=== PATIENT | female | born 1990 | race Caucasian/White ===

== ENCOUNTER 2019-11-03 09:44 | Observation (INO) | payer MEDICAID, SELFPAY ==
[~2019-11-03] VITALS: Ht 175.3 cm; Wt 120.7 kg
[~2019-11-03 09:44] MED LIST: LABE100T20 PO; PREN-385 PO
[2019-11-03 10:55] VITALS: BP 113/73
== END 2019-11-03 11:45 | disposition home or self-care (01) ==
LOC: MLD 09:44
PROVIDERS: ADMIT Obstetrics & Gynecology; ATTEND Obstetrics & Gynecology
DX: Z03.818 Encounter for observation for suspected exposure to other biological agents ruled out (principal); O62.9 Abnormality of forces of labor, unspecified; Z3A.38 38 weeks gestation of pregnancy
CPT/HCPCS: 59025; 76815; 81000; G0378; Q0092; U0003

== ENCOUNTER 2019-11-05 15:05 | Inpatient (IN) | payer MEDICAID, SELFPAY ==
[~2019-11-05] VITALS: Ht 175.3 cm; Wt 104.3 kg
[~2019-11-05 15:05] MED LIST changes: -LABE100T20 PO
[2019-11-05] MEDS ORDERED: MISOPROSTOL 25 MCG TAB VG PRN (16:05)
[2019-11-05] MEDS ORDERED: PROMETHAZINE 25 MG/ML VIAL IVP PRN (16:05)
[2019-11-05] MEDS ORDERED: METHYLERGONOVINE 0.2 MG/ML AMP IM PRN (16:05)
[2019-11-05] MEDS ORDERED: CARBOPROST 250 MCG/ML AMP IM PRN (16:05)
[2019-11-05] MEDS ORDERED: OXYTOCIN 10 UNITS/ML VIAL IM SCH (16:05)
[2019-11-05 16:44] LABS: BASOPHILS % (AUTO) 0.2 % (0.0-2.0); EOSINOPHILS % (AUTO) 0.4 % (0.0-4.0); HEMATOCRIT 36.7 % (36-48); HEMOGLOBIN 12.3 g/dL (12.0-16.0); LYMPHOCYTES # (AUTO) 1.9 K/uL (2.5-16.5); LYMPHOCYTES % (AUTO) 20.4 % (20.5-51.1); MEAN CORPUSCULAR HEMOGLOBIN 31 pg (27-31); MEAN CORPUSCULAR HGB CONC 34 g/dL (33-37); MEAN CORPUSCULAR VOLUME 93.1 fL (80-94); MONOCYTES # (AUTO) 0.7 K/uL (0.8-1.0); MONOCYTES % (AUTO) 7.9 % (1.7-9.3); NEUTROPHILS # (AUTO) 6.5 K/uL (1.8-7.7); NEUTROPHILS % (AUTO) 71.1 % (42.2-75.2); PLATELET COUNT (AUTO) 207 K/uL (140-450); RED BLOOD CELL COUNT(AUTO) 3.94 MIL/uL (4.20-5.40); RED CELL DISTRIBUTION WIDTH 14.1 % (11.6-13.7); WHITE BLOOD COUNT (AUTO) 9.1 K/uL (4.8-10.8)
[2019-11-05 16:51] LABS: APPEARANCE,URINE HAZY (CLEAR); BILIRUBIN,URINE NEGATIVE (NEGATIVE); BLOOD, URINE NEGATIVE (NEGATIVE); COLOR,URINE YELLOW (YELLOW); LEUKOCYTE ESTERASE ,URINE TRACE (NEGATIVE); NITRITE, URINE NEGATIVE (NEGATIVE); PH,URINE 7.5 (5.0-9.0); UGLUCOSE NEGATIVE (NEGATIVE)
[2019-11-05 17:04] LABS: ALBUMIN 2.7 g/dL (3.4-5.0); ANION GAP 16.7 (8-16); CREATININE 0.7 mg/dL (0.6-1.3); POTASSIUM 3.7 mmol/L (3.5-5.1); TOTAL BILIRUBIN 0.2 mg/dL (0.0-1.0)
[2019-11-05 17:15] LABS: RBC,URINE NONE SEEN /HPF (0-5); WBC,URINE 0-5 /HPF (0-5)
[2019-11-06] MEDS ORDERED: OXYTOCIN 20 UNITS/LR PREMIX 1,000 ML IV SCH (02:55)
[2019-11-06] MEDS ORDERED: OXYTOCIN 20 UNITS/LR PREMIX 1,000 ML IV ONE (03:03)
[2019-11-06] MEDS: LACTATED RINGERS 1,000 ML IV SCH ×3 (03:30→20:58)
--- NOTE | 2019-11-06 10:35 | NUR ---
PATIENT HAS BEEN SCREENED AND CATEGORIZED LOW NUTRITION RISK. PATIENT WILL BE SEEN WITHIN 7 DAYS OF ADMISSION. 11/12/2019 JONATHAN HARRIS MBA, RD
[2019-11-07] MEDS ORDERED: OXYTOCIN 20 UNITS/LR PREMIX 1,000 ML IV ONE (02:59)
[2019-11-07] MEDS: LACTATED RINGERS 1,000 ML IV SCH ×2 (05:45→13:44)
== END 2019-11-07 19:40 | disposition home or self-care (01) | DRG 566 ==
LOC: MLD 15:05
PROVIDERS: ADMIT Obstetrics & Gynecology; ATTEND Obstetrics & Gynecology
PROC: 3E033VJ Introduction of Other Hormone into Peripheral Vein, Percutaneous Approach (ICD-10-PCS; principal; 2019-11-05)
PROC: 3E0P7VZ Introduction of Hormone into Female Reproductive, Via Natural or Artificial Opening (ICD-10-PCS; 2019-11-05)
DX: O41.03X0 Oligohydramnios, third trimester, not applicable or unspecified (principal); Z3A.38 38 weeks gestation of pregnancy
CPT/HCPCS: 36415; 76805; 80053; 81001; 85025; 86592; 86886; 86900; 86901; J2590; J7120; Q0092

== ENCOUNTER 2019-11-12 15:55 | Inpatient (IN) | payer MEDICAID, SELFPAY ==
[~2019-11-12] VITALS: Ht 175.3 cm; Wt 123.4 kg
[2019-11-12] MEDS ORDERED: LACTATED RINGERS 1,000 ML IV SCH (16:02)
[2019-11-12] MEDS ORDERED: PROMETHAZINE 25 MG/ML VIAL IVP PRN (16:05)
[2019-11-12] MEDS ORDERED: CARBOPROST 250 MCG/ML AMP IM PRN (16:05)
[2019-11-12] MEDS ORDERED: METHYLERGONOVINE 0.2 MG/ML AMP IM PRN (16:05)
[2019-11-12] MEDS ORDERED: OXYTOCIN 10 UNITS/ML VIAL IM SCH (16:05)
[2019-11-12 16:41] LABS: BASOPHILS % (AUTO) 0.3 % (0.0-2.0); EOSINOPHILS # (AUTO) 0.1 K/uL (0-0.4); EOSINOPHILS % (AUTO) 0.6 % (0.0-4.0); HEMOGLOBIN 12.9 g/dL (12.0-16.0); LYMPHOCYTES # (AUTO) 2.1 K/uL (2.5-16.5); LYMPHOCYTES % (AUTO) 23.8 % (20.5-51.1); MEAN CORPUSCULAR HEMOGLOBIN 31 pg (27-31); MEAN CORPUSCULAR HGB CONC 33 g/dL (33-37); MEAN CORPUSCULAR VOLUME 93.8 fL (80-94); MONOCYTES # (AUTO) 0.9 K/uL (0.8-1.0); MONOCYTES % (AUTO) 10.1 % (1.7-9.3); NEUTROPHILS # (AUTO) 5.6 K/uL (1.8-7.7); NEUTROPHILS % (AUTO) 65.2 % (42.2-75.2); PLATELET COUNT (AUTO) 214 K/uL (140-450); RED BLOOD CELL COUNT(AUTO) 4.16 MIL/uL (4.20-5.40); RED CELL DISTRIBUTION WIDTH 14.2 % (11.6-13.7); WHITE BLOOD COUNT (AUTO) 8.6 K/uL (4.8-10.8)
[2019-11-12 17:41] LABS: BILIRUBIN,URINE NEGATIVE (NEGATIVE); BLOOD, URINE NEGATIVE (NEGATIVE); LEUKOCYTE ESTERASE ,URINE TRACE (NEGATIVE); NITRITE, URINE NEGATIVE (NEGATIVE); PH,URINE 7.5 (5.0-9.0); UGLUCOSE NEGATIVE (NEGATIVE)
[2019-11-12 17:46] LABS: APPEARANCE,URINE CLOUDY (CLEAR); COLOR,URINE STRAW (YELLOW)
[2019-11-12 18:13] LABS: ANION GAP 19.7 (8-16); CARBON DIOXIDE 19.4 mmol/L (21-32); CREATININE 0.6 mg/dL (0.6-1.3); POTASSIUM 4.1 mmol/L (3.5-5.1); TOTAL BILIRUBIN 0.2 mg/dL (0.0-1.0)
[2019-11-12] MEDS ORDERED: MISOPROSTOL 25 MCG TAB ONE (18:48)
[2019-11-12 19:17] LABS: RBC,URINE 0-5 /HPF (0-5); WBC,URINE 0-5 /HPF (0-5)
[2019-11-12] MEDS ORDERED: MISOPROSTOL 25 MCG TAB VG SCH (20:00)
[2019-11-13] MEDS ORDERED: OXYTOCIN 20 UNITS/LR PREMIX 1,000 ML IV ONE (03:00)
--- NOTE | 2019-11-13 06:31 | NUR ---
PATIENT HAS BEEN SCREENED AND CATEGORIZED LOW NUTRITION RISK. PATIENT WILL BE SEEN WITHIN 7 DAYS OF ADMISSION. 11/20/19 VAISHALI VICTOR MS, RDN
[2019-11-13] MEDS ORDERED: ROPIVACAINE 0.2%/NS PREMIX 200 ML EPI ONE (08:53)
[2019-11-13] MEDS ORDERED: LIDOCAINE 1% 500 MG/50 ML VIAL ONE (09:15)
[2019-11-13] MEDS ORDERED: SODIUM PHOSPHATE 118 ML ENEM RC PRN (18:05)
[2019-11-13] MEDS ORDERED: MEASLES, MUMPS, AND RUBELLA 1 VIAL SQVAC PRN ×2 (18:05→18:10)
[2019-11-13] MEDS ORDERED: BENZOCAINE/MENTHOL 20%-0.5% 60 GM CAN TP PRN (18:05)
[2019-11-13] MEDS ORDERED: OXYTOCIN 10 UNITS/ML VIAL IM PRN (18:05)
[2019-11-13] MEDS ORDERED: HYDROcodone/APAP 5/325 MG 1 TAB TAB PO PRN (18:05)
[2019-11-13] MEDS ORDERED: oxyCODONE/APAP 5/325 MG 1 TAB TAB PO PRN (18:05)
[2019-11-13] MEDS ORDERED: TEMAZEPAM 15 MG CAP PO PRN (18:05)
[2019-11-13] MEDS ORDERED: METHYLERGONOVINE 0.2 MG/ML AMP IM PRN (18:05)
[2019-11-13] MEDS ORDERED: OXYTOCIN 20 UNITS/LR PREMIX 1,000 ML IV SCH (18:08)
[2019-11-13] MEDS ORDERED: ACETAMINOPHEN 325 MG TAB PO PRN (18:10)
[2019-11-13] MEDS ORDERED: bisacodyL 5 MG TABEC PO PRN (18:10)
[2019-11-13] MEDS ORDERED: IBUPROFEN 600 MG TAB PO PRN (18:10)
[2019-11-13] MEDS ORDERED: DOCUSATE SODIUM 100 MG GELCAP PO PRN (18:10)
[2019-11-13] MEDS ORDERED: DOCUSATE SOD/SENNA 50/8.6 MG 1 TAB PO SCH (21:00)
[2019-11-13] MEDS ORDERED: bisacodyL 5 MG TABEC PO SCH (21:00)
[2019-11-14 06:01] LABS: BASOPHILS % (AUTO) 0.2 % (0.0-2.0); EOSINOPHILS # (AUTO) 0.1 K/uL (0-0.4); EOSINOPHILS % (AUTO) 0.6 % (0.0-4.0); HEMATOCRIT 36.5 % (36-48); HEMOGLOBIN 12.1 g/dL (12.0-16.0); LYMPHOCYTES # (AUTO) 2.1 K/uL (2.5-16.5); LYMPHOCYTES % (AUTO) 17.1 % (20.5-51.1); MEAN CORPUSCULAR HEMOGLOBIN 31 pg (27-31); MEAN CORPUSCULAR HGB CONC 33 g/dL (33-37); MEAN CORPUSCULAR VOLUME 93.4 fL (80-94); MONOCYTES # (AUTO) 1.2 K/uL (0.8-1.0); MONOCYTES % (AUTO) 9.3 % (1.7-9.3); NEUTROPHILS # (AUTO) 9.1 K/uL (1.8-7.7); NEUTROPHILS % (AUTO) 72.8 % (42.2-75.2); PLATELET COUNT (AUTO) 185 K/uL (140-450); RED BLOOD CELL COUNT(AUTO) 3.91 MIL/uL (4.20-5.40); RED CELL DISTRIBUTION WIDTH 14.3 % (11.6-13.7); WHITE BLOOD COUNT (AUTO) 12.5 K/uL (4.8-10.8)
[2019-11-15] MEDS ORDERED: FERR325E14 PO (13:51)
[2019-11-15] MEDS ORDERED: ACET-9800 PO (13:52)
== END 2019-11-15 15:15 | disposition home or self-care (01) | DRG 560 ==
LOC: MLD 15:55 → MFCC 11-13 19:55
PROVIDERS: ADMIT Obstetrics & Gynecology; ATTEND Obstetrics & Gynecology
PROC: 3E0P7VZ Introduction of Hormone into Female Reproductive, Via Natural or Artificial Opening (ICD-10-PCS; 2019-11-12)
PROC: 10E0XZZ Delivery of Products of Conception, External Approach (ICD-10-PCS; principal; 2019-11-13)
PROC: 10907ZC Drainage of Amniotic Fluid, Therapeutic from Products of Conception, Via Natural or Artificial Opening (ICD-10-PCS; 2019-11-13)
PROC: 00HU33Z Insertion of Infusion Device into Spinal Canal, Percutaneous Approach (ICD-10-PCS; 2019-11-13)
PROC: 3E0R3BZ Introduction of Anesthetic Agent into Spinal Canal, Percutaneous Approach (ICD-10-PCS; 2019-11-13)
PROC: 3E0234Z Introduction of Serum, Toxoid and Vaccine into Muscle, Percutaneous Approach (ICD-10-PCS; 2019-11-14)
DX: O80 Encounter for full-term uncomplicated delivery (principal); Z20.828 Contact with and (suspected) exposure to other viral communicable diseases; Z23 Encounter for immunization; Z3A.40 40 weeks gestation of pregnancy; Z37.0 Single live birth
CPT/HCPCS: 36415; 59200; 59409; 76815; 80053; 81001; 85025; 86592; 86886; 86900; 86901; 90715; J2001; J2590; J2795; J7120; Q0092